=== PATIENT | female | born 1940 | race Caucasian/White ===

== ENCOUNTER → 2016-03-03 | Outpatient (CLI) | payer MEDICARE, OTHER ==
--- NOTE | 2016-03-04 10:08 | MM ---
Reason for exam: screening (asymptomatic). Last mammogram was performed 3 years and 1 month ago. History: Patient is postmenopausal. Family history of breast cancer in sister at age 56. Physical Findings: A clinical breast exam by your physician is recommended on an annual basis and results should be correlated with mammographic findings. MG 3D Screening Mammo W/Cad Bilateral CC and MLO view(s) were taken. Prior study comparison: February 08, 2013, bilateral digital screening mammo w/CAD. September 16, 2010, bilateral digital screening mammo w/CAD. There are scattered fibroglandular densities. No significant changes when compared with prior studies. ASSESSMENT: Benign, BI-RAD 2 RECOMMENDATION: Routine screening mammogram of both breasts in 1 year.
== END | disposition home or self-care (01) ==
LOC: RADMAMWWP 14:43
PROVIDERS: ATTEND Family Medicine
DX: Z12.31 Encounter for screening mammogram for malignant neoplasm of breast (principal)
CPT/HCPCS: 77063; G0202

== ENCOUNTER → 2017-06-24 | Outpatient (CLI) | payer MEDICARE, OTHER ==
--- NOTE | 2017-06-25 14:52 | MM ---
Reason for exam: screening (asymptomatic). Last mammogram was performed 1 year and 4 months ago. History: Patient is postmenopausal. Family history of breast cancer in sister at age 56. Physical Findings: A clinical breast exam by your physician is recommended on an annual basis and results should be correlated with mammographic findings. MG 3D Screening Mammo W/Cad Bilateral CC and MLO view(s) were taken. Prior study comparison: March 03, 2016, bilateral MG 3d screening mammo w/cad. February 08, 2013, bilateral digital screening mammo w/CAD. The breast tissue is heterogeneously dense. This may lower the sensitivity of mammography. Finding: There are stable vascular calcifications. No significant changes in finding since March 03, 2016 and February 08, 2013. ASSESSMENT: Benign, BI-RAD 2 RECOMMENDATION: Routine screening mammogram of both breasts in 1 year.
== END | disposition home or self-care (01) ==
LOC: RADMAMWWP 13:12
PROVIDERS: ATTEND Internal Medicine
DX: Z12.31 Encounter for screening mammogram for malignant neoplasm of breast (principal)
CPT/HCPCS: 77063; 77067

== ENCOUNTER → 2017-08-07 | Outpatient (CLI) | payer MEDICARE, OTHER ==
[2017-08-07 12:53] LABS: HCT 42.3 % (34.0-46.0); HGB 13.6 gm/dL (11.4-16.0); MCH 30.5 pg (25.0-35.0); Platelet Count 221 k/uL (150-450); RBC 4.46 m/uL (3.80-5.40); RDW 14.2 % (11.5-15.5); WBC 4.7 k/uL (3.8-10.6)
[2017-08-07 13:02] LABS: Potassium 4.9 mmol/L (3.5-5.1)
== END | disposition home or self-care (01) ==
LOC: LABPAT 11:30
PROVIDERS: ATTEND Internal Medicine Interventional Cardiology
DX: Z01.812 Encounter for preprocedural laboratory examination (principal); R94.30 Abnormal result of cardiovascular function study, unspecified
CPT/HCPCS: 36415; 80051; 82565; 84520; 85027

== ENCOUNTER 2017-08-25 05:53 | Day surgery (SDC) | payer MEDICARE, OTHER ==
[2017-08-25] MEDS ORDERED: ALPRAZolam 0.25 MG TAB PO PRN (06:00)
[2017-08-25] MEDS ORDERED: ASPIRIN 325 MG TAB PO ONE (06:00)
[2017-08-25] MEDS ORDERED: SODIUM CHLORIDE 0.9% 1,000 ML in EMPTY BAG 1 BAG IV ONE (06:00)
[2017-08-25] MEDS ORDERED: IV FLUID CONTINUATION 900 ML IV ONE (07:40)
[2017-08-25] MEDS ORDERED: diphenhydrAMINE 50 MG/ML 1 ML VIAL IVP ONE (07:45)
[2017-08-25] MEDS ORDERED: fentaNYL (PF) 50 MCG/ML 2 ML AMP IV ONE (07:45)
[2017-08-25] MEDS ORDERED: LIDOCAINE 2% SYG (PF) 100 MG/5 ML MISCELLANE ONE (07:50)
[2017-08-25] MEDS ORDERED: VERAPAMIL SYRINGE (5 MG/10 ML) INTRAARTER ONE (07:52)
[2017-08-25] MEDS ORDERED: BIVALIRUDIN 250 MG in SODIUM CHLORIDE 0.9% 35 ML IV ONE (08:08)
[2017-08-25] MEDS ORDERED: BIVALIRUDIN BOLUS 250 MG/50 ML IV ONE (08:08)
[2017-08-25] MEDS ORDERED: CLOPIDOGREL 75 MG TAB PO ONE (08:10)
[2017-08-25] MEDS ORDERED: NITROGLYCERIN 1000MCG/10ML SYRINGE INTRACORON ONE (08:13)
[2017-08-25] MEDS ORDERED: IOPAMIDOL-370 125ML BTL INJ ONE (08:20)
[2017-08-25] MEDS ORDERED: IOPAMIDOL-370 100ML BTL INJ ONE (08:45)
--- NOTE | 2017-08-25 10:39 | CC ---
CARDIAC CATHETERIZATION REPORT Mrs. Coronado is a 77-year-old female known history of paroxysmal atrial fibrillation who had some episode of chest discomfort, underwent a stress test that revealed anterior wall ischemia. In view of that, recommendation was made regarding cardiac catheterization. The procedure as well as the risks, and the complications were discussed with the patient who is in full understanding and agreement. PROCEDURE: Patient was brought to aquatic laborer in a fasting semi-sedated state after receiving fentanyl and Benadryl and achieving moderate conscious sedated state. Using Xylocaine anesthesia in the Seldinger technique, a 6-Vincentian sheath was introduced in the right radial artery. Selective right and left coronary angiography performed using 5-Vincentian 3.5 bend right and left Aleksander catheter. Multiple views of the coronary artery including hemiaxial views obtained. Following that, angioplasty and stenting of the LAD was performed. Following that, 5-Vincentian tight pigtail catheter was introduced in the left ventricle and pressures were calculated. Following that, catheter and sheath were removed. Hemostasis was obtained with deployment of a TR band. There was no immediate complication. The patient is returned to her room in stable condition. FINDINGS: FLUOROSCOPY: There was calcification involving the left anterior descending artery territory. LEFT MAIN: This is a short size vessel large in caliber bifurcating left circumflex, left anterior descending artery. Left main coronary artery has no evidence of high- grade stenosis. LEFT ANTERIOR DESCENDING ARTERY: This is a large-sized vessel reaching toward the apex with a wraparound apex segment giving rise to 2 diagonal branches. The first one is large in caliber. The left anterior descending artery is calcified proximally has a long area of stenosis involving the proximal throughout the mid vessel with area stenosis up to 85% to 90% after the takeoff of the diagonal branch. The distal vessel has no high-grade stenosis. There is mild plaque at the first diagonal branch. LEFT CIRCUMFLEX: This is a nondominant vessel giving rise to 2 obtuse marginal branches. At the proximal segment of the second obtuse marginal branch has a 30% plaque. The rest of the vessel has no high-grade stenosis. RIGHT CORONARY ARTERY: This is a dominant vessel, large in caliber bifurcating distally to PDA and posterolateral segment and branches. The right coronary artery in the mid segment has an intimal plaque of 10% to 20%. LEFT VENTRICULOGRAM: Left ventriculogram is not performed. HEMODYNAMICS: There was no gradient across the aortic valve. The left ventricular end- diastolic pressure rivas 20 mmHg. CONCLUSION: 1. Critical stenosis involving a long segment of the proximal and mid left anterior descending artery. 2. Mild disease in the left circumflex and the right coronary artery. RECOMMENDATION: In view of finding anatomy, I recommend proceeding with angioplasty and stenting of the LAD. The procedure as well as the risks and the complications were discussed with the patient who is in full understanding and agreement. MMODL / IJN: [id number] /
--- NOTE | 2017-08-25 10:51 | PTCA ---
PERCUTANEOUSTRANS CORORONARY ANGIOGRAPHY Mrs. Coronado is a 77-year-old female with a history of paroxysmal atrial fibrillation, abnormal myocardial perfusion imaging, who underwent cardiac catheterization was found to have a long area of stenosis involving the proximal and mid LAD. In view of that, recommendation was made regarding angioplasty and stenting. The procedure as well as the risks and the complications were discussed with the patient who is in full understanding and agreement. PROCEDURE: A Slovenian FL 3.5 guiding catheter introduced in the system after cannulating the left main a 0.014 balanced medium weight J-wire was advanced across the lesion, positioned distally. Then a 2.5 x 12 mm Trek balloon was advanced and one inflation at 8 atmospheres was done. Following that, a 2.5 x 23 mm Xience Alpine stent was deployed, postdilated at 16 atmospheres. After removing the balloon a 2.5 x 15 mm Xience Alpine stent was deployed distal to the first one and postdilated at 16 atmospheres and then inflation overlap segment 16 atmospheres was done. Following that, the balloon and the guidewire were withdrawn back in the guiding catheter. Images were obtained and repeated. Those images reveal stable successful stenting. At that point, the guiding catheter, the balloon and the guidewire were removed and a left ventricular pressure was calculated. Following that, the catheter and sheaths were removed. Hemostasis was obtained with deployment of a TR band. There was no immediate complication. Patient was returned to her room in stable condition. Of note, the patient had chest discomfort and EKG changes with the inflation that resolved at the end of the procedure. She received Angiomax per protocol as was oral loading dose of clopidogrel. She received intra-arterial verapamil during the procedure. RESULTS: Successful stenting of the proximal and mid left anterior descending artery with reduction of stenosis from 85% to 0%. RECOMMENDATION: Patient will be continued on aspirin, Plavix and statin. The importance of dual antiplatelet treatment were discussed with the patient and her family and are in full understanding and agreement. Duration of procedure is 46 minutes. MMODL / IJN: [id number] /
--- NOTE | 2017-08-25 10:51 | LTR ---
August 25, 2916 Re: Ivette Coronado Dear. Dr. Cohen: I had the opportunity to perform cardiac catheterization on Mrs. Coronado at [facility] on the 25 of August and a full copy of the procedure note will be forwarded to you. In brief, she was found to have critical stenosis involving the long segment of the LAD proximal and mid segment and she underwent successful stenting of that vessel. I am hopeful that this procedure will stabilize her status. Thank you again for allowing me the opportunity to participate in her care. Please feel free to call for any questions. Sincerely yours, MD JIMMIE Keohler / GRIS: [id number] /
[2017-08-25] MEDS ORDERED: PRASUGREL 10 MG TAB PO STA (14:12)
[2017-08-25] MEDS: SODIUM CHLORIDE 0.9% 1,000 ML IV SCH (14:20)
[2017-08-25] MEDS: DILTIAZEM CD 180 MG CAP.ER.24H PO SCH (14:20)
[2017-08-25 16:15] VITALS: RESP 18
[2017-08-25] MEDS ORDERED: ATORVASTATIN 40 MG TAB PO SCH (21:00)
[2017-08-26] MEDS: SODIUM CHLORIDE 0.9% 1,000 ML IV SCH ×2 (06:46→08:28)
[2017-08-26] MEDS ORDERED: ALBUTEROL NEBULIZED 2.5 MG/3 ML INHALATION PRN (07:58)
[2017-08-26] MEDS: DILTIAZEM CD 180 MG CAP.ER.24H PO SCH (08:34)
[2017-08-26] MEDS ORDERED: NITROGLYCERIN SL TABS 0.4 MG TAB SUBLINGUAL PRN (08:38)
[2017-08-26] MEDS ORDERED: RX INFO: IV CONTRAST WAS GIVEN 1 EACH MISC MISCELLANE PRN (08:38)
[2017-08-26] MEDS ORDERED: MAG HYDROX/AL HYDROX/SIMETH 30 ML CUP PO PRN (08:38)
[2017-08-26] MEDS ORDERED: ATROPINE SULFATE 0.1 MG/ML 10ML SYRINGE IV PRN (08:38)
[2017-08-26] MEDS ORDERED: ZOLPIDEM 5 MG TAB PO PRN (08:38)
[2017-08-26] MEDS ORDERED: ASPIRIN 81 MG PO SCH (09:00)
[2017-08-26] MEDS ORDERED: PRASUGREL 10 MG TAB PO SCH (09:00)
[2017-08-26 09:02] VITALS: BP 107/69; TEMP 98.1
[2017-08-26 09:11] VITALS: PULSE 72
--- NOTE | 2017-08-26 09:16 | PN ---
PROGRESS NOTE Mrs. Coronado is a 77-year-old female with history of paroxysmal atrial fibrillation who had abnormal myocardial perfusion imaging, underwent cardiac catheterization, was found to have critical stenosis involving the LAD, underwent stenting of that vessel. She is doing well this morning. She denying any chest pain. She feels more energetic. She denies any dizziness or palpitation. She denies any nausea. She continued to be on aspirin once a day, Lipitor 40 mg daily, diltiazem 180 mg daily and Effient 10 mg daily. PHYSICAL EXAMINATION: Blood pressure 126/60 with a heart rate in the 70s. LUNGS: Clear HEART: Regular rate and rhythm. S1, S2. No S3. No rub. ABDOMEN: Soft and nontender. EXTREMITIES: No edema. Right radial pulse intact with mild ecchymosis. EKG revealed no acute changes. IMPRESSION: 1. Status post stenting of the left anterior descending artery. 2. Paroxysmal atrial fibrillation. 3. Hypertension. RECOMMENDATION: Patient should be able to be discharged home today and followed as an outpatient. MMODL / IJN: [id number] /
[2017-08-26 09:56] LABS: Calcium 9.6 mg/dL (8.4-10.2); Potassium 4.5 mmol/L (3.5-5.1)
[2017-08-26 10:49] VITALS: BMI 30.9
== END 2017-08-26 10:59 | disposition home or self-care (01) ==
LOC: CATHCVL 05:53 → 6SEL 09:00 → CATHCVL 08-26 10:59
PROVIDERS: ATTEND Internal Medicine Interventional Cardiology
DX: I25.10 Atherosclerotic heart disease of native coronary artery without angina pectoris (principal); R94.39 Abnormal result of other cardiovascular function study; I48.0 Paroxysmal atrial fibrillation; I10 Essential (primary) hypertension; Z79.01 Long term (current) use of anticoagulants; Z79.82 Long term (current) use of aspirin; Z79.899 Other long term (current) drug therapy; Z88.1 Allergy status to other antibiotic agents
CPT/HCPCS: 94640; 93458; 85347; 80048; C9600; C1769 ×2; C1887; C1894; C1725; C1874; J1200; J2001; J3010; J0583; Q9967 ×2

== ENCOUNTER → 2017-09-30 | Outpatient (CLI) | payer MEDICARE, OTHER ==
[2017-09-30 14:11] LABS: Calcium 9.7 mg/dL (8.4-10.2); Potassium 4.6 mmol/L (3.5-5.1); Total Bilirubin 0.6 mg/dL (0.2-1.3); Total Protein 6.2 g/dL (6.3-8.2)
== END | disposition home or self-care (01) ==
LOC: LABWHC1 13:24
PROVIDERS: ATTEND Internal Medicine Interventional Cardiology
DX: E78.2 Mixed hyperlipidemia (principal)
CPT/HCPCS: 36415; 80053; 80061

== ENCOUNTER → 2017-11-09 | Outpatient (CLI) | payer MEDICARE, OTHER ==
[2017-11-09 15:32] LABS: Anisocytosis Slight; Basophils % (A) 0 %; Eosinophils # (A) 0.2 k/uL (0-0.7); Eosinophils % (A) 4 %; HCT 30.3 % (34.0-46.0); HGB 9.7 gm/dL (11.4-16.0); Hypochromasia Slight; Lymphocytes # (A) 1.4 k/uL (1.0-4.8); Lymphocytes % (A) 22 %; MCH 30.6 pg (25.0-35.0); MCHC 32.1 g/dL (31.0-37.0); MCV 95.4 fL (80.0-100.0); Mean Platelet Volume 6.7; Monocytes # (A) 0.4 k/uL (0-1.0); Monocytes % (A) 6 %; Neutrophils # (A) 4.2 k/uL (1.3-7.7); Neutrophils % (A) 67 %; Platelet Count 375 k/uL (150-450); RBC 3.18 m/uL (3.80-5.40); RDW 16.1 % (11.5-15.5); WBC 6.3 k/uL (3.8-10.6)
[2017-11-09 15:42] LABS: Calcium 9.1 mg/dL (8.4-10.2); Magnesium 2.3 mg/dL (1.6-2.3); Phosphorus 3.2 mg/dL (2.5-4.5); Potassium 4.4 mmol/L (3.5-5.1)
== END ==
LOC: LABWHC1 14:54
PROVIDERS: ATTEND Internal Medicine
DX: J44.9 Chronic obstructive pulmonary disease, unspecified (principal); N18.3 Chronic kidney disease, stage 3 (moderate); D63.1 Anemia in chronic kidney disease; J45.909 Unspecified asthma, uncomplicated; R60.0 Localized edema
CPT/HCPCS: 36415; 80048; 83735; 83880; 83970; 84100; 85025

== ENCOUNTER → 2018-02-16 | Outpatient (CLI) | payer MEDICARE, OTHER ==
[2018-02-16 10:11] LABS: Basophils % (A) 1 %; Eosinophils # (A) 0.3 k/uL (0-0.7); Eosinophils % (A) 8 %; HCT 42.7 % (34.0-46.0); Lymphocytes # (A) 1.1 k/uL (1.0-4.8); Lymphocytes % (A) 32 %; MCH 30.5 pg (25.0-35.0); MCHC 32.8 g/dL (31.0-37.0); MCV 92.7 fL (80.0-100.0); Monocytes # (A) 0.3 k/uL (0-1.0); Monocytes % (A) 8 %; Neutrophils # (A) 1.7 k/uL (1.3-7.7); Neutrophils % (A) 50 %; Platelet Count 204 k/uL (150-450); RBC 4.61 m/uL (3.80-5.40); RDW 13.1 % (11.5-15.5); WBC 3.5 k/uL (3.8-10.6)
== END | disposition home or self-care (01) ==
LOC: LABWHC1 09:06
PROVIDERS: ATTEND Internal Medicine
DX: D64.9 Anemia, unspecified (principal)
CPT/HCPCS: 36415; 85025

== ENCOUNTER → 2019-09-25 | Outpatient (CLI) | payer MEDICARE, OTHER ==
[2019-09-25 11:16] LABS: Basophils % (A) 0 %; Eosinophils % (A) 0 %; HCT 45.1 % (34.0-46.0); HGB 14.7 gm/dL (11.4-16.0); Lymphocytes # (A) 1.2 k/uL (1.0-4.8); Lymphocytes % (A) 27 %; MCH 29.7 pg (25.0-35.0); MCHC 32.7 g/dL (31.0-37.0); Mean Platelet Volume 8.4; Monocytes # (A) 0.3 k/uL (0-1.0); Monocytes % (A) 7 %; Neutrophils # (A) 2.9 k/uL (1.3-7.7); Neutrophils % (A) 65 %; Platelet Count 212 k/uL (150-450); RBC 4.95 m/uL (3.80-5.40); RDW 13.7 % (11.5-15.5); WBC 4.5 k/uL (3.8-10.6)
[2019-09-25 20:14] LABS: Erythrocyte Sedimentation Rate 6 mm/Hr (0-30)
[2019-09-25 20:51] LABS: ALT 14 U/L (8-44); AST 18 U/L (13-35); African American GFR (CKD) 70.5 (60.0-200.0); Albumin/Globulin Ratio 2.33 (1.60-3.17); Alkaline Phosphatase 89 U/L (41-126); BUN/Creat Ratio 21.11 Ratio (12.00-20.00); C Reactive Protein <0.4 mg/dL (0.0-0.8); Calcium 9.5 mg/dL (8.7-10.3); Carbon Dioxide 25.9 mmol/L (21.6-31.8); Chloride 110 mmol/L (96-109); Chol/HDL Ratio 2.26; Cholesterol 131 mg/dL (0-200); Creatine Kinase 29 U/L (26-186); Globulin 1.8 g/dL (1.6-3.3); Glucose 94 mg/dL (70-110); LDL Cholesterol,Calculated 59.6 mg/dL (0.0-131.0); Non-African American GFR(CKD) 60.8 (60.0-200.0); Potassium 4.8 mmol/L (3.5-5.5); Sodium 144 mmol/L (135-145); Total Bilirubin 0.6 mg/dL (0.3-1.2)
== END | disposition home or self-care (01) ==
LOC: LABWHC1 09:26
PROVIDERS: ATTEND Internal Medicine Interventional Cardiology
DX: Z00.00 Encounter for general adult medical examination without abnormal findings (principal); J44.9 Chronic obstructive pulmonary disease, unspecified; D64.9 Anemia, unspecified; I10 Essential (primary) hypertension; E03.9 Hypothyroidism, unspecified; E78.2 Mixed hyperlipidemia
CPT/HCPCS: 36415; 80053; 80061; 82550; 84443; 85025; 85652; 86140

== ENCOUNTER → 2023-05-18 | Outpatient (CLI) | payer MEDICARE, OTHER ==
--- NOTE | 2023-05-18 17:02 | US ---
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 No nephrolithiasis is seen. No gus s are identified. The urinary bladder is anechoic. Bilateral ureteral jets are seen. IMPRESSION: 1. 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 Direct visualization and tissue sampling recommended. 2. No evidence for obstructive uropathy.
--- NOTE | 2023-05-20 13:55 | MM ---
Reason for Exam: Screening (asymptomatic). Last mammogram was performed 2 year(s) and 4 month(s) ago. Patient History: Menarche at age 15. First Full-Term at age 18. Postmenopausal. Sister had breast cancer, age 56. Risk Values: Kiara 5 year model risk: 2.5%. NCI Lifetime model risk: 3.1%. Prior Study Comparison: 09/16/2010 Bilateral Screening Mammogram, [facility]. 02/08/2013 Bilateral Screening Mammogram, [facility]. 03/03/2016 Bilateral Screening Mammogram, [facility]. 06/24/2017 Bilateral Screening Mammogram, [facility]. 01/01/2021 Bilateral Screening Mammogram, [facility]. Tissue Density: There are scattered areas of fibroglandular density. Findings: Analyzed By CAD. There is no suspicious group of microcalcifications or new suspicious mass in either breast. Benign appearing vascular calcifications and stable benign-appearing lymph nodes. Overall Assessment: Benign, BI-RAD 2 Management: Screening Mammogram of both breasts in 1 year. . Patient should continue monthly self-breast exams. A clinical breast exam by your physician is recommended on an annual basis. This exam should not preclude additional follow-up of suspicious palpable abnormalities. Note on Kiara scores and lifetime risk: 1. A Kiara score greater than 3% is considered moderate risk. If this is the case, consider specialist referral to assess eligibility for a risk reducing agent. 2. If overall lifetime risk for the development of breast cancer is 20% or higher, the patient may qualify for future screening with alternating mammogram and breast MRI. Electronically signed and approved by: Pablito Kennedy M.D. Radiologis
== END | disposition home or self-care (01) ==
LOC: RADUSWWP 13:25
PROVIDERS: ATTEND Internal Medicine
DX: Z12.31 Encounter for screening mammogram for malignant neoplasm of breast (principal); N32.89 Other specified disorders of bladder; N27.0 Small kidney, unilateral; E87.5 Hyperkalemia; N18.30 Chronic kidney disease, stage 3 unspecified; Z80.3 Family history of malignant neoplasm of breast; Z78.0 Asymptomatic menopausal state
CPT/HCPCS: 76770; 77063; 77067

== ENCOUNTER → 2023-08-17 | Outpatient (CLI) | payer MEDICARE, OTHER ==
--- NOTE | 2023-08-17 15:09 | XR ---
EXAMINATION TYPE: XR Hip Complete RT DATE OF EXAM: 08/17/2023 12:57 PM CLINICAL INDICATION:Female, 83 years old with history of M25.551 R hip pain; [facility] COMPARISON: None. TECHNIQUE: XR Hip Complete RT; hip was examined in the frontal and lateral projections and a AP pelvi s. FINDINGS: No evidence for acute process, joint dislocation or significant soft tissue swelling. Osteo phyte formation of the superior acetabulum of the hip. There is mild joint space narrowing. IMPRESSION: 1. No evidence for acute process. 2. Mild hip osteoarthrosis.
== END | disposition home or self-care (01) ==
LOC: RADXRMAIN 12:39
PROVIDERS: ATTEND Internal Medicine
DX: M16.11 Unilateral primary osteoarthritis, right hip (principal)
CPT/HCPCS: 73502

== ENCOUNTER → 2023-08-30 | Outpatient (CLI) | payer MEDICARE, OTHER ==
[2023-08-30 15:25] LABS: ALT 17 U/L (8-44); AST 24 U/L (13-35); Albumin 4.4 g/dL (3.8-4.9); Alkaline Phosphatase 77 U/L (41-126); BUN/Creat Ratio 17.67 Ratio (12.00-20.00); Blood Urea Nitrogen 15.9 mg/dL (9.0-27.0); Calcium 10.6 mg/dL (8.7-10.3); Carbon Dioxide 26.7 mmol/L (21.6-31.8); Chloride 106 mmol/L (96-109); Chol/HDL Ratio 2.04 Ratio; Globulin 2.1 g/dL (1.6-3.3); Glucose 97 mg/dL (70-110); LDL Cholesterol,Calculated 46.2 mg/dL (0.0-131.0); Potassium 5.1 mmol/L (3.5-5.5); Sodium 143 mmol/L (135-145); Total Bilirubin 0.5 mg/dL (0.3-1.2); Total Protein 6.5 g/dL (6.2-8.2); VLDL Calculation 15.64 mg/dL (5.00-40.00)
== END | disposition home or self-care (01) ==
LOC: LABWHC1 09:37
PROVIDERS: ATTEND Internal Medicine Interventional Cardiology
DX: E78.2 Mixed hyperlipidemia (principal)
CPT/HCPCS: 36415; 80053; 80061

== ENCOUNTER → 2023-09-20 | Outpatient (CLI) | payer MEDICARE, OTHER ==
[2023-09-20 12:02] LABS: Ionized Calcium 5.3 mg/dL (4.5-5.3)
[2023-09-20 17:22] LABS: BUN/Creat Ratio 17.44 Ratio (12.00-20.00); Blood Urea Nitrogen 15.7 mg/dL (9.0-27.0); Calcium 10.1 mg/dL (8.7-10.3); Carbon Dioxide 26.3 mmol/L (21.6-31.8); Chloride 107 mmol/L (96-109); Glucose 93 mg/dL (70-110); Potassium 4.7 mmol/L (3.5-5.5); Sodium 144 mmol/L (135-145)
== END | disposition home or self-care (01) ==
LOC: LABWHC1 10:35
PROVIDERS: ATTEND Internal Medicine
DX: E11.65 Type 2 diabetes mellitus with hyperglycemia (principal); E11.22 Type 2 diabetes mellitus with diabetic chronic kidney disease; N18.30 Chronic kidney disease, stage 3 unspecified; E83.51 Hypocalcemia
CPT/HCPCS: 36415; 80048; 82330; 83036

== ENCOUNTER → 2024-07-05 | Outpatient (CLI) | payer MEDICARE, OTHER ==
--- NOTE | 2024-07-05 08:57 | US ---
EXAMINATION TYPE: US kidneys/renal and bladder DATE OF EXAM: 07/05/2024 COMPARISON: 05/18/2023 renal ultrasound CLINICAL INDICATION: Female, 84 years old with history of C67.9 MALIGNANT NEOPLASM OF BLADDER, UNSPEC IFIED; Patient denies any signs or symptoms. Hx Bladder cancer TECHNIQUE: Grayscale imaging of the bilateral kidneys and urinary bladder: FINDINGS: EXAM MEASUREMENTS: Right Kidney: 9.4 x 4.4 x 3.9 cm Left Kidney: 10.4 x 5.3 x 5.2 cm Post Void Residual Volume: NA mL Right Kidney: wnl, no evidence for hydronephrosis, mass or renal calculus. Subcentimeter cyst redemon strated Left Kidney: wnl, no evidence for hydronephrosis, mass or renal calculus. Bladder: wnl Bilateral Jets seen: Yes Normal Post Void Residual: NA There is no evidence for hydronephrosis at this point in time. No nephrolithiasis is seen. No gsu s are identified. Increased cortical echogenicity bilaterally. The urinary bladder is anechoic. IMPRESSION: No suspicious intraluminal mass in bladder on current study. No hydronephrosis seen bilat erally. [facility], , 07/05/2024 8:55 AM
== END | disposition home or self-care (01) ==
LOC: RADUSWWP 08:25
PROVIDERS: ATTEND Urology
DX: C67.9 Malignant neoplasm of bladder, unspecified (principal)
CPT/HCPCS: 76770